=== PATIENT | male | born 1990 | race Caucasian/White ===

== ENCOUNTER 2018-05-30 18:11 | Emergency (ER) | payer MEDICAID ==
--- NOTE | 2018-05-30 19:58 | ED Physician Chart ---
ED Chief Complaint/HPI - Patient Information Date Seen:: 05/30/18 Time Seen:: 19:57 Chief Complaint:: Foreign body in left eye History of Present Illness:: 27 yo male saw a small particle flying into his left eye when patient was cleaning auto part with a metal brush 6 hours ago. Patient denied any immediate sharp pain or bleeding in the left eye. However, he later felt irritation of his left eye lids when closing and opening over left eye. Patient denied change of vision. Allergies:: Allergies Allergy/AdvReac Type Severity Reaction Status Date / Time No Known Allergies Allergy Verified 05/30/18 18:32 Vitals:: Vital Signs - 8 hr 05/30/18 18:32 Temp 98.3 F HR 59 RR 15 BP 122/80 O2 Sat % 98 ED Review of Systems - Review of Systems General/Constitutional: No fever, No chills Skin: No rash Head: No headache Eyes: Other (discomfort in left eye) ENT: No nasal drainage Neck: No neck pain Cardio Vascular: No chest pain Pulmonary: No SOB GI: No nausea, No vomiting Musculoskeletal: No bone or joint pain Psychiatric: No prior psych history Neurological: No focal symptoms ED Past Medical History - Past Medical History Past Medical History: No significant medical hx Social History: Non Smoker, Alcohol, No Drug Use Surgical History: None Family Medical History - Family Member Mother History Unknown: Yes ED Physical Exam - Physical Examination General/Constitutional: Awake, Alert Head: Atraumatic Other Eyes comments:: A small foreign body ~1mm stuck in the front cornea of the left eye without linear abrasion. No perforation of the cornea, no erythema of conjunctiva. 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 Is Septic Shock (SBP<90, OR Lactate>4 mmol\L) present?: No - <6hrs of presentation: Vital Signs: Vital Signs - 8 hr 05/30/18 18:32 Temp 98.3 F HR 59 RR 15 BP 122/80 O2 Sat % 98 ED Reassessment (Disposition) - Reassessment Reassessment Condition:: Unchanged - Aftercare/Follow up Instructions Medication Prescribed:: Ofloxacin 0.3% 1-2 gtt in left eye q4h x 2 days, then 1 gtt qid x 5 days - Patient Disposition Discharge/Transfer:: Home
== END 2018-05-30 20:23 | disposition home or self-care (01) ==
LOC: ER 18:11
DX: T15.02XA Foreign body in cornea, left eye, initial encounter (principal); X58.XXXA Exposure to other specified factors, initial encounter; Y93.89 Activity, other specified; Y92.89 Other specified places as the place of occurrence of the external cause; Y99.0 Civilian activity done for income or pay
CPT/HCPCS: Z7502